=== PATIENT | female | born 1945 | race Two or more races ===

== ENCOUNTER 2016-07-30 05:37 | Emergency (ER) | payer OTHER ==
[~2016-07-30] VITALS: Ht 157.5 cm; Wt 125.2 kg
[~2016-07-30 05:37] MED LIST: ALL100T PO; B-COTAB10 PO; CLO01T PO; DULO1CAP3 PO; FEBU40TA PO; FER325T PO; FURO20TA3 PO; GABA-497 PO; HYDR-531 PO; LEV100T PO; LEVO500I7 IV; MONT10TA34 PO; PANT40T PO; PRED15SO2 PO; SENN8.6T15 PO; SULF-92 PO
[2016-07-30] MEDS ORDERED: MORPHINE SULFATE 4 MG/ML SYRG IV ONE (07:00)
[2016-07-30] MEDS ORDERED: ONDANSETRON HCL 4 MG/2 ML VIAL IV ONE (07:00)
[2016-07-30 10:40] VITALS: BP 150/78
== END 2016-07-30 11:00 | disposition home or self-care (01) ==
LOC: ER 05:37 → EDBD 05:37 → ER 11:00
DX: S46.912A Strain of unspecified muscle, fascia and tendon at shoulder and upper arm level, left arm, initial encounter (principal); M75.102 Unspecified rotator cuff tear or rupture of left shoulder, not specified as traumatic; I25.10 Atherosclerotic heart disease of native coronary artery without angina pectoris; J44.9 Chronic obstructive pulmonary disease, unspecified; I12.0 Hypertensive chronic kidney disease with stage 5 chronic kidney disease or end stage renal disease; N18.6 End stage renal disease; E78.5 Hyperlipidemia, unspecified; E07.9 Disorder of thyroid, unspecified; Z88.0 Allergy status to penicillin; Z79.899 Other long term (current) drug therapy; Z90.49 Acquired absence of other specified parts of digestive tract; Z90.710 Acquired absence of both cervix and uterus; W06.XXXA Fall from bed, initial encounter; Y93.89 Activity, other specified; Y92.89 Other specified places as the place of occurrence of the external cause; Y99.8 Other external cause status
CPT/HCPCS: 29105; 73030; 73200; 96374; 96375; 99284; J2270; J2405